=== PATIENT | female | born 1995 | race Caucasian/White ===

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

== ENCOUNTER 2017-06-14 17:13 | Emergency (ER) | payer BC ==
[~2017-06-14] VITALS: Ht 162.6 cm; Wt 63.6 kg
[2017-06-14 17:14] VITALS: Ht 162.6 cm; Wt 63.6 kg
[2017-06-14] MEDS ORDERED: ONDANSETRON 4 MG INJ IV STA (19:11)
[2017-06-14] MEDS ORDERED: SOD CHLORIDE 0.9% 1,000 ML IV STA (19:11)
--- NOTE | 2017-06-14 19:30 | ERD ---
ER Documentation Chief Complaint Date/Time DATE: 06/14/17 TIME: 19:23 Chief Complaint cp and syncopy x 45 minutes HPI This is a 21-year-old female that presented to the emergency department after she had a brief transient loss of consciousness roughly 45 minutes prior to arrival. The patient had been at work when her friend stated she started to feel nauseous and had 2 episodes of nonbloody nonbilious emesis. She then stated she felt like she was going to pass out and a friend at work who accompanied her to the hospital stated she was able to catch her and break her fall to the patient did not hit her head during the syncope episode. While in triage the patient had another witnessed brief transient loss of consciousness that lasted for roughly 20 seconds, with recovery but not to the patient's baseline. She immediately was placed in the bed. The patient had slurred speech and was drowsy but did indicate that she onto [facility] this morning prior to work. She had been given a prescription of 5 mg of Valium which she had filled just prior to arrival. She was given 10 tablets and indicated she had taken 2 tablets just prior to arrival in the triage. The patient denies any suicidal homicidal thoughts or ideations. She stated she was taking the medication not to kill herself but rather to calm her nerves and she has a history of anxiety. Denied any other coingestions of drugs or alcohol. She is denying a headache or fever at this time. ROS All systems reviewed and are negative except as per history of present illness. Medications Home Meds Reported Medications Lorazepam* (Lorazepam*) 0.5 Mg Tablet, 0.5 MG PO DAILY Y for NEEDED, TAB 06/14/17 Allergies Allergies: Coded Allergies: No Known Allergy (Unverified , 06/14/17) PMhx/Soc Hx Psychiatric Problems: Yes (anxiety panic) Hx Alcohol Use: Yes Hx Substance Use: No Hx Tobacco Use: No Physical Exam Vitals Vital Signs Date Time Temp Pulse Resp B/P Pulse Ox O2 Delivery O2 Flow Rate FiO2 06/14/17 21:27 87 17 143/83 98 Room Air 06/14/17 19:42 97.1 64 17 126/78 Room Air 06/14/17 17:14 97.8 60 16 108/54 99 Physical Exam Constitutional:Well-developed. Well-nourished. Patient drowsy and immediately carried into a stretcher from the triage room. HEENT:Normocephalic. Atraumatic.Pupils were 3 mm equal round reactive to light. Moist mucous membranes.No tonsillar exudates. Neck: No nuchal rigidity. No lymphadenopathy. No posterior cervical spine tenderness or step-offs. Respiratory: Not using accessory muscles of respiration.Lungs were clear to auscultation bilaterally. No rhonchi. No rales. No wheezing. Cardiovascular: Regular rate regular rhythm.No murmurs. No rubs were appreciated.S1, S2 normal. Distal pulses are palpable 2+ bilaterally. GI: Abdomen was soft. Nontender. Non Distended. No pulsatile abdominal masses or bruits. No rebound. No guarding. Bowel sounds were present and normal. Muscle skeletal: Full range of motion of both the upper and lower extremities bilaterally.Normal muscle tone.No assymetrical calf tenderness or swelling. Skin: No petechia, no purpura. No lesions on the palms or the soles of the feet. No maculopapular rash. Multiple healed previous linear scars on the flexor surfaces of the bilateral upper extremities from previous cutting NEURO: Patient was alert, awake, orientated to person place and time however patient was slow to answer questions. Respond to painful stimuli. Slurred speech and would answer questions appropriately. Gait not observed as patient was too drowsy to ambulate. Opens eyes and responds to pain Result Diagram: 06/14/17191406/14/171914 Results 24 hrs Laboratory Tests Test 06/14/17 19:07 06/14/17 19:15 Bedside Glucose 126mg/dL White Blood Count 26.610^3/ul Red Blood Count 4.8510^6/ul Hemoglobin 14.1g/dl Hematocrit 42.0% Mean Corpuscular Volume 86.6fl Mean Corpuscular Hemoglobin 29.1pg Mean Corpuscular Hemoglobin Concent 33.6g/dl Red Cell Distribution Width 12.5% Platelet Count 66229^3/UL Mean Platelet Volume 11.0fl Neutrophils % 79.0% Lymphocytes % 6.0% Monocytes % 7.0% Nucleated Red Blood Cells % 0.0/100WBC Neutrophils # 21.010^3/ul Band Neutrophils # 21.010^3/ul Lymphocytes # 1.610^3/ul Monocytes # 1.910^3/ul Platelet Estimate NORMAL Prothrombin Time 13.1Sec Prothrombin Time Ratio 1.0 INR International Normalized Ratio 0.99 Activated Partial Thromboplast Time 22.5Sec Sodium Level 144mmol/L Potassium Level 3.2mmol/L Chloride Level 105mmol/L Carbon Dioxide Level 25mmol/L Anion Gap 17 Blood Urea Nitrogen 11mg/dl Creatinine 0.78mg/dl Glucose Level 157mg/dl Calcium Level 9.5mg/dl Total Bilirubin 0.1mg/dl Direct Bilirubin 0.00mg/dl Indirect Bilirubin 0.1mg/dl Aspartate Amino Transf (AST/SGOT) 62IU/L Alanine Aminotransferase (ALT/SGPT) 63IU/L Alkaline Phosphatase 112IU/L Total Protein 8.1g/dl Albumin 4.6g/dl Globulin 3.50g/dl Albumin/Globulin Ratio 1.31 Serum HCG, Qualitative NEGATIVE Salicylates Level < 1.0mg/dl Acetaminophen Level < 10.0ug/ml Ethyl Alcohol Level < 10.0mg/dl Current Medications Medications (Trade) Dose Ordered Sig/Robin Route PRN Reason Start Time Stop Time Status Last Admin Dose Admin Sodium Chloride (NS) 1,000 ml @ 1,000 mls/hr Q1H STAT IV 06/14/17 19:11 06/14/17 20:10 DC 06/14/17 19:49 Ondansetron HCl (Zofran Inj) 4 mg ONCE STAT IV 06/14/17 19:11 06/14/17 19:13 DC 06/14/17 19:49 Ketorolac Tromethamine (Toradol) 30 mg ONCE STAT IV 06/14/17 20:55 06/14/17 20:56 DC 06/14/17 21:15 Procedures/MDM The patient presented to the emergency department with a transient loss of consciousness with loss of postural tone, suggestive of a syncope episode. The differential diagnosis of syncope is vast but my workup considered common benign disorders to life-threatening processes. Therefore my differential diagnosis included but was not limited to reflex-mediated syncope such as vasovagal or carotid sinus syncope from coughing, sneezing, micturition, or GI stimulation (eg, defecation). Other etiologies in my workup included orthostatic hypotension which could cause syncope from an abrupt drop in venous return to heart from volume depletion. An EKG and cardiac enzymes were obtained to rule out cardiac arrhythmias or ischemia. Cardiopulmonary disease such as valvular disease, hypertrophic cardiomyopathy, pericardial tamponade, or pulmonary embolism were considered as a factor causing the patients syncope episode. The patient had no difference in blood pressure in both arms that could suggest aortic dissection or subclavian steal syndrome. Rectal exam was negative for fecal occult blood that could suggest GI bleeding. Ancillary laboratory work was obtained to evaluate for metabolic or electrolyte abnormalities. The patient had no witnessed brief tonic movements that could suggest postictal confusion. The patient was placed on a monitor tech, continuous pulse oximetry and IV access established by nursing staff. The patient had been given antiemetics and she was actively vomiting. She was given IV Pepcid and Zofran. I did feel the patient's drowsiness was secondary to accidental overdose of 10 mg of diazepam. I did talk in length with the patient regarding suicidal thoughts ideations and she stated she was not suicidal. She states she has anxiety and depression but does not want to hurt herself. I discussed with the patient the previous abrasions on her arms from cutting after she became more alert and oriented and she stated she did that years ago due to stress. She denies any psychiatric history. 12 Lead EKG tracing ordered and reviewed by myself showed: Normal sinus rhythm of 62 bpm and no arrhythmia. MT interval normal. QRS duration normal. No ST segment elevation No ST segment depression. No changes consistent with acute ischemia. I did obtain a CT scan of the patient's head due to 2 episodes of syncope which appeared to be vasovagal. This is reviewed by myself the radiologist there is no evidence of intracerebral hemorrhage mass-effect or midline shift. Observation Note: Time: Observation Note: Time: 4 hours Family Hx: No Hypertension Evaluation: Multiple exams showed improving symptoms and no evidence of toxic encephalopathy. Her symptoms have completely improved. Her speech was no longer slurred and she was alert awake oriented 3 with a normal gait. The patient was complaining of mild abdominal discomfort after she had episodes of nonbloody nonbilious emesis. Repeat abdominal exams performed by myself showed a benign abdomen with no peritoneal signs. She received IV Toradol and acetaminophen. The patient was discharged home in fair condition. They were instructed to return to the emergency department at any time if there was any worsening of their condition. The patient stated they would follow up with their PCP in the next 24-48 hours to initiate a suitable medication regimen under the care of their PCP as well as to allow their PCP to monitor any drug reactions. The patient was discharged home with prescriptions after they gave informed consent to the new medication. They were also fully informed by myself on the adverse effects and adverse drug interactions in order to provide adequate safeguards to prevent possible adverse reactions to medications. Departure Diagnosis: Primary Impression: Benzodiazepine causing adverse effect in therapeutic use Encounter type: initial encounter Qualified Code: T42.4X5A - Benzodiazepine causing adverse effect in therapeutic use, initial encounter Condition: HELEN Patel Jun 14, 2017 19:30
[2017-06-14 19:35] LABS: ABNORMAL IP MESSAGE 1; HEMOGLOBIN 14.1 g/dl (12.0-16.0); MEAN CORPUSCULAR HEMOGLOBIN 29.1 pg (29.0-33.0); MEAN CORPUSCULAR HGB CONC 33.6 g/dl (32.0-37.0); MEAN CORPUSCULAR VOLUME 86.6 fl (72.0-104.0); PLATELET COUNT 317 10^3/UL (140-415); RED BLOOD COUNT 4.85 10^6/ul (4.20-5.40); RED CELL DISTRIBUTION WIDTH 12.5 % (11.5-14.5); WHITE BLOOD COUNT 26.6 10^3/ul (4.8-10.8)
[2017-06-14 19:40] LABS: POSITIVE DIFF @See below
[2017-06-14 19:48] LABS: ALBUMIN/GLOBULIN RATIO 1.31; ANION GAP 17 (8-16)
[2017-06-14] MEDS ORDERED: LORA0.5T PO (19:49)
[2017-06-14 19:52] LABS: SODIUM 144 mmol/L (135-144)
[2017-06-14 19:53] LABS: ACETAMINOPHEN < 10.0 ug/ml (10.0-30.0); ALANINE AMINOTRANSFERASE 63 IU/L (13-69); ALBUMIN 4.6 g/dl (3.3-4.9); ALKALINE PHOSPHATASE 112 IU/L (42-121); ASPARTATE AMINO TRANSFERASE 62 IU/L (15-46); BILIRUBIN,INDIRECT 0.1 mg/dl (0-1.1); BILIRUBIN,TOTAL 0.1 mg/dl (0.2-1.3); BLOOD UREA NITROGEN 11 mg/dl (7-20); CALCIUM 9.5 mg/dl (8.4-10.2); CARBON DIOXIDE 25 mmol/L (21-31); CHLORIDE 105 mmol/L (97-110); CREATININE 0.78 mg/dl (0.44-1.00); ETHANOL < 10.0 mg/dl; GLUCOSE 157 mg/dl (70-220); POTASSIUM 3.2 mmol/L (3.5-5.1); SALICYLATE < 1.0 mg/dl (5.0-30.0); TOTAL PROTEIN 8.1 g/dl (6.1-8.1)
[2017-06-14 20:02] LABS: INR 0.99; PROTIME 13.1 Sec (12.2-14.2)
[2017-06-14 20:03] LABS: PARTIAL THROMBOPLASTIN TIME 22.5 Sec (25.0-35.0)
--- NOTE | 2017-06-14 20:09 | RADRPT ---
PROCEDURE: CT Brain without contrast. CLINICAL INDICATION: ALOC TECHNIQUE: A CT of the brain was performed on a [employer] 64-slice CT scanner utilizing axial imaging from the skull base through the vertex without IV contrast. Multiplanar reformatted images were made. Images were reviewed on a PACS workstation. The CTDIvol is 44.8 mGy and the DLP is 720 mGycm. COMPARISON: None FINDINGS: There is no intracranial hemorrhage, mass effect, or midline shift. No extra-axial fluid collection is seen. The ventricles and sulci are normal in size and configuration. The density of the brain is normal, and the chen white matter differentiation appears well-preserved. The visualized paranasal sinuses and osseous structures are grossly unremarkable. IMPRESSION: 1. No evidence of acute intracranial pathology. 2. The brain is normal in appearance. Physician Isaias Date Time Electronically viewed and signed by Physician Isaias on 06/14/2017 20:09 ML/
[2017-06-14 20:20] LABS: LYMPHOCYTES # 1.6 10^3/ul (0.8-2.9); MONOCYTE # 1.9 10^3/ul (0.3-0.9)
[2017-06-14 20:34] LABS: PLATELET ESTIMATE NORMAL
[2017-06-14] MEDS ORDERED: KETOROLAC 30 MG INJ IV STA (20:55)
[2017-06-14] MEDS ORDERED: ACETAMINOPHEN 500 MG TAB PO STA (22:28)
[2017-06-14] MEDS ORDERED: ONDA4TAB14 PO (22:31)
[2017-06-14 22:54] VITALS: BP 127/79; PULSE 81; RESP 17; TEMP 97.8
== END 2017-06-14 22:55 | disposition home or self-care (01) ==
LOC: E/R 17:13
DX: R55 Syncope and collapse (principal); T42.4X5A Adverse effect of benzodiazepines, initial encounter; R10.2 Pelvic and perineal pain
CPT/HCPCS: 70450; 80053; 80306; 82962; 84703; 85025; 85610; 85730; 93005; 96374; 96375; 99285; J1885; J2405; J7030; Z7610